=== PATIENT | female | born 1990 | race Two or more races ===

== ENCOUNTER 2017-01-26 16:32 | Emergency (ER) | payer MEDICAID ==
[~2017-01-26] VITALS: Ht 165.1 cm; Wt 96.0 kg
[2017-01-26] MEDS ORDERED: SODIUM CHLORIDE 0.9% 1,000ML IVBOLUS ONE (17:00)
[2017-01-26] MEDS ORDERED: SODIUM CHLORIDE FLUSH 10ML SYR IVF ONE (17:00)
[2017-01-26 17:42] LABS: HEMATOCRIT 38.5 % (34.6-47.8); HEMOGLOBIN 12.7 g/dL (11.7-16.4); WHITE BLOOD COUNT 7.6 x10^3/uL (3.4-10)
[2017-01-26 17:44] LABS: BLOOD UREA NITROGEN 9 mg/dL (7-18)
[2017-01-26 18:01] LABS: ASPARTATE AMINO TRANSFERASE 19 U/L (15-37)
[2017-01-26 19:21] VITALS: BP 108/55
== END 2017-01-26 19:34 | disposition home or self-care (01) ==
LOC: ED 19:28
DX: O20.0 Threatened abortion (principal); O46.92 Antepartum hemorrhage, unspecified, second trimester; Z3A.15 15 weeks gestation of pregnancy
CPT/HCPCS: 36415; 76805; 80053; 81001; 84702; 85025; 86901; 87086; 99285

== ENCOUNTER 2018-12-06 11:20 | Day surgery (SDC) | payer BC ==
[~2018-12-06] VITALS: Ht 165.1 cm; Wt 99.0 kg
[2018-12-06] MEDS ORDERED: BUPIVACAINE/PF 0.25% ONE (11:39)
[2018-12-06] MEDS ORDERED: EPINEPHRINE 1 MG/ML, 1ML ONE (11:39)
[2018-12-06] MEDS ORDERED: VASOPRESSIN 20 UNIT/ML, 1ML ONE (11:40)
[2018-12-06 11:50] VITALS: BP 122/85
[2018-12-06] MEDS ORDERED: LACTATED RINGERS 1,000 ML IV SCH (12:03)
[2018-12-06] MEDS ORDERED: DENIES (12:04)
[2018-12-06] MEDS ORDERED: MIDAZOLAM 1 MG/ML, 2ML ONE ×2 (12:09→13:49)
[2018-12-06] MEDS ORDERED: FENTANYL PF 250 MCG/5ML ONE (12:09)
[2018-12-06] MEDS ORDERED: KETOROLAC 30 MG/1 ML ONE (12:18)
[2018-12-06] MEDS ORDERED: MEPERIDINE/PF 25MG/0.5ML IVPush PRN (13:00)
[2018-12-06] MEDS ORDERED: ACETAMINOPHEN 325 MG TABLET PO PRN (13:00)
[2018-12-06] MEDS ORDERED: ONDANSETRON 2MG/ML, 2ML IV PRN (13:00)
[2018-12-06] MEDS ORDERED: MIDAZOLAM 1 MG/ML, 2ML IV PRN (13:00)
[2018-12-06] MEDS ORDERED: hydrALAzine 20 MG/ML, 1ML IV PRN (13:00)
[2018-12-06] MEDS ORDERED: HYDROmorphone 2 MG/ML, 1ML IVPush PRN (13:00)
[2018-12-06] MEDS ORDERED: OXYcodone 5 MG/5 ML ORAL.SOL UDC PO PRN (13:00)
[2018-12-06] MEDS ORDERED: FENTANYL PF 100 MCG/2ML IV PRN (13:00)
[2018-12-06] MEDS ORDERED: METOPROLOL 1 MG/ML, 5ML IV PRN (13:00)
[2018-12-06] MEDS ORDERED: SCOPOLAMINE PATCH, 1.5MG PATCH.TD72 TD PRN (13:00)
[2018-12-06] MEDS ORDERED: PROMETHAZINE 25 MG/ML, 1ML IV PRN (13:00)
[2018-12-06] MEDS ORDERED: ALBUTEROL/IPRATROPIUM 2.5MG/0.5MG, 3 ML NPPB PRN (13:00)
[2018-12-06] MEDS ORDERED: CEFAZOLIN 1,000 MG ONE (13:02)
[2018-12-06] MEDS ORDERED: ONDANSETRON 2MG/ML, 2ML ONE (13:02)
[2018-12-06] MEDS ORDERED: NEOSTIGMINE 1 MG/ML, 10ML ONE (13:02)
[2018-12-06] MEDS ORDERED: PROPOFOL 10 MG/ML, 20ML ONE (13:02)
[2018-12-06] MEDS ORDERED: DEXAMETHASONE 4 MG/ML, 1ML ONE (13:02)
[2018-12-06] MEDS ORDERED: GLYCOPYRROLATE 0.2MG/1ML, 5ML ONE (13:02)
[2018-12-06] MEDS ORDERED: ROCURONIUM 10MG/ML,5ML ONE (13:02)
[2018-12-06] MEDS ORDERED: SUCCINYLCHOLINE 20 MG/ML, 10ML ONE (13:02)
[2018-12-06] MEDS ORDERED: OXYcodone 5 MG/5 ML ORAL.SOL UDC ONE (13:41)
[2018-12-06] MEDS ORDERED: MEPERIDINE/PF 25MG/ML,1ML ONE (13:41)
[2018-12-06] MEDS ORDERED: FENTANYL PF 100 MCG/2ML ONE (13:49)
== END 2018-12-06 16:04 | disposition home or self-care (01) ==
LOC: OUT 11:20
PROVIDERS: ATTEND Obstetrics & Gynecology
DX: O00.102 Left tubal pregnancy without intrauterine pregnancy (principal); Z30.432 Encounter for removal of intrauterine contraceptive device; Z79.899 Other long term (current) drug therapy
CPT/HCPCS: 36415; 58301; 59151; 86850; 86900; 88305; J0171; J0330; J0690; J1100; J1885; J2175; J2250; J2405; J2704; J2710; J3010; J3490; J7120